=== PATIENT | male | born 1970 | race Caucasian/White ===

== ENCOUNTER 2019-08-03 02:28 | Emergency (ER) | payer SELFPAY ==
[2019-08-03 03:13] LABS: ABSOLUTE EOSINOPHILS # (AUTO) 0.1 10^3/uL (0.0-0.6); ABSOLUTE LYMPHOCYTES (AUTO) 1.7 10^3/uL (0.5-4.7); ABSOLUTE MONOCYTES (AUTO) 0.6 10^3/uL (0.1-1.4); ABSOLUTE NEUT (AUTO) 6.2 10^3/uL (1.7-8.2); BASOPHILS % (AUTO) 0.5 % (0-2); EOSINOPHILS % (AUTO) 0.6 % (0-6); HEMATOCRIT 37.2 % (37.9-51.0); HEMOGLOBIN 12.5 g/dL (13.5-17.0); LYMPHOCYTES % (AUTO) 19.9 % (13-45); MEAN CORPUSCULAR HEMOGLOBIN 30.5 pg (27.0-33.4); MEAN CORPUSCULAR HGB CONC 33.6 g/dL (32.0-36.0); MEAN CORPUSCULAR VOLUME 91 fl (80-97); MONOCYTES % (AUTO) 6.9 % (3-13); PLATELET COUNT 276 10^3/uL (150-450); RED CELL DISTRIBUTION WIDTH 15.3 % (11.5-14.0); SEGMENTED NEUTROPHILS % (AUTO) 72.1 % (42-78); TOTAL CELLS COUNTED % (AUTO) 100 %; WHITE BLOOD COUNT 8.5 10^3/uL (4.0-10.5)
[2019-08-03 03:29] LABS: ALBUMIN 4.2 g/dL (3.5-5.0); ALCOHOL 65 mg/dL (NONE DETECTED); ALKALINE PHOSPHATASE 77 U/L (38-126); ANION GAP 13 (5-19); ASPARTATE AMINO TRANSFERASE 29 U/L (17-59); BILIRUBIN,DIRECT 0.2 mg/dL (0.0-0.4); BLOOD UREA NITROGEN 14 mg/dL (7-20); CALCIUM 9.2 mg/dL (8.4-10.2); CARBON DIOXIDE 25 mmol/L (22-30); CHLORIDE 105 mmol/L (98-107); GLUCOSE 108 mg/dL (75-110); POTASSIUM 3.6 mmol/L (3.6-5.0); TOTAL PROTEIN 6.8 g/dL (6.3-8.2)
[2019-08-03 03:30] LABS: ACETAMINOPHEN < 10 ug/mL (10-30); SALICYLATE < 1.0 mg/dL (2.0-20.0)
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
[2019-08-03 04:47] LABS: APPEARANCE,URINE TURBID; BILIRUBIN,URINE NEGATIVE (NEGATIVE); COLOR,URINE YELLOW; GLUCOSE, URINE NEGATIVE (NEGATIVE); KETONES,URINE TRACE mg/dL (NEGATIVE); LEUKOCYTE ESTERASE,URINE NEGATIVE (NEGATIVE); NITRITE,URINE NEGATIVE (NEGATIVE); PROTEIN,URINE NEGATIVE (NEGATIVE); URINE SPECIFIC GRAVITY 1.021; UROBILINOGEN,URINE NEGATIVE mg/dL (<2.0)
[2019-08-03 05:05] LABS: URINE BARBITURATES SCREEN NEGATIVE; URINE BENZODIAZEPINES SCREEN NEGATIVE; URINE COCAINE SCREEN NEGATIVE; URINE MARIJUANA (THC) SCREEN NEGATIVE; URINE METHADONE SCREEN NEGATIVE; URINE PHENCYCLIDINE SCREEN NEGATIVE
--- NOTE | 2019-08-03 06:52 | EKG REPORT ---
SEVERITY:- BORDERLINE ECG - SINUS RHYTHM BORDERLINE PROLONGED QT INTERVAL NONSPECIFIC ST-T CHANGES- INFERIOR LEADS : Confirmed by: Jeremy Kang MD 03-Aug-2019 06:51:53
--- NOTE | 2019-08-03 08:24 | ER Document Report ---
Doctor's Note Notes: 08/03/19 08:22 S: Patient to the ER last night for alcohol abuse, meth abuse and passive SI. He states that he feels worthless because of his polysubstance abuse and because he and his girlfriend have been fighting. He came in last night and told the overnight provider that he had a plan to step in front of a vehicle. He denies that plan this morning. He and our crisis team have been discussing plans for disposition and he would like to voluntarily go to [place] for alcohol and drug rehab. Denies any HI or hallucinations this morning O: Constitution: Alert and oriented resting in room quietly. No tremors HENT: Atraumatic, normocephalic. Neck supple. Poor dentition likely from meth use Cardiac: Regular rate and rhythm, no murmurs, rubs, gallops. No leg edema Lungs: Clear to auscultation bilaterally, no wheezes, rhonchi, rales Abdomen: Nontender to palpation, soft, nondistended Neuro: Alert and oriented x4, no tremors or evidence of acute alcohol withdrawal. No pronator drift. Cranial nerves II through XII are intact. No leg drift. No nystagmus. Psych: Poor eye contact, withdrawn. States that he would like to get help with his polysubstance abuse that he can get his "life back on track". Passive SI but no active plan at this time. No HI or hallucinations Skin: Normal turgor, dry A/P: Plan for patient to be discharged to [facility] for further treatment and management for his polysubstance abuse. Patient is in agreement for the plan.
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
[2019-08-03 10:10] VITALS: BP 105/74
== END 2019-08-03 10:10 | disposition home or self-care (01) ==
LOC: ER 02:28
DX: F10.10 Alcohol abuse, uncomplicated (principal); F19.10 Other psychoactive substance abuse, uncomplicated; F39 Unspecified mood [affective] disorder; R45.851 Suicidal ideations; F17.200 Nicotine dependence, unspecified, uncomplicated
CPT/HCPCS: 36415; 80053; 80307; 81001; 85025; 93005; 93010; 99285